=== PATIENT | female | born 1975 | race Caucasian/White ===

== ENCOUNTER 2019-08-19 08:04 | Emergency (ER) | payer SELFPAY ==
[~2019-08-19] VITALS: Wt 81.6 kg
[2019-08-19 08:04] VITALS: BP 125/78
[~2019-08-19 08:04] MED LIST: AMOXICILLIN500 MG PO; AMOXIL500 MG PO; ATIVAN0.5 MG PO; CLEOCIN150 MG PO; IBUPROFEN800 MG; NORCO 325 MG-51 TAB PO; PAXIL30 MG PO; PEN-VEE K500 MG PO; PRENATAL1 TA1 PO
[2019-08-19] MEDS ORDERED: Motrin,Rufen800 MG PO (09:43)
== END 2019-08-19 09:56 | disposition home or self-care (01) ==
LOC: ED 08:04
DX: S93.402A Sprain of unspecified ligament of left ankle, initial encounter (principal); Z79.899 Other long term (current) drug therapy; W10.8XXA Fall (on) (from) other stairs and steps, initial encounter; Y93.89 Activity, other specified; Y92.89 Other specified places as the place of occurrence of the external cause; Y99.8 Other external cause status